=== PATIENT | female | born 1990 | race Caucasian/White ===

== ENCOUNTER 2017-04-02 19:14 | Emergency (ER) | payer OTHER ==
[2017-04-02 19:41] VITALS: TEMP 98.5
[2017-04-02] MEDS ORDERED: KETOROLAC 30 MG/ML 1 ML VIAL IVP STA (20:42)
--- NOTE | 2017-04-02 20:47 | ED ---
Chest Pain HPI - General Chief Complaint: Chest Pain Stated Complaint: neck & arm pain/SOB Time Seen by Provider: 04/02/17 20:22 Source: patient, RN notes reviewed Mode of arrival: ambulatory Limitations: no limitations - History of Present Illness Initial Comments: This is a 26-year-old female who presents to the Emergency Department with complaint of chest pain. There have been intermittent episodes of sharp chest pain localized to the left side with radiation up to the neck since yesterday. Each episode lasts approximately 3 minutes and is associated with nausea. She reports that the left side of her chest and neck is tender to the touch and must remove her shirt from her skin for relief. Pain is positional and reproducible. Denies fever, chills, shortness of breath, abdominal pain, vomiting, dysuria, hematuria, numbess, tingling, headache or vision changes. - Related Data Home Medications Medication Instructions Recorded Confirmed diphenhydrAMINE HCL [Benadryl] 25 mg PO HS 04/02/17 04/02/17 Previous Rx's Medication Instructions Recorded Ibuprofen [Motrin] 800 mg PO TID PRN #30 tab 04/02/17 Allergies Allergy/AdvReac Type Severity Reaction Status Date / Time pregabalin [From Lyrica] Allergy Swelling Verified 04/02/17 20:30 Iodinated Contrast- Oral and AdvReac Nausea & Verified 04/02/17 20:30 IV Dye Vomiting Review of Systems ROS Statement: Those systems with pertinent positive or pertinent negative responses have been documented in the HPI. ROS Other: All systems not noted in ROS Statement are negative. EKG Findings - EKG Comments: EKG Findings:: 04/02/2017 at 20:12:47. Normal sinus rhythm with ventricular rate of 89 bpm. IL interval 162 QRS duration 88 QT/QTC 366/445 Past Medical History Past Medical History: Fibromyalgia Additional Past Medical History / Comment(s): back pain History of Any Multi-Drug Resistant Organisms: None Reported Additional Past Surgical History / Comment(s): D&C Past Psychological History: Anxiety Smoking Status: Never smoker Past Alcohol Use History: Occasional Past Drug Use History: None Reported General Exam - General Exam Comments Initial Comments: General: Awake and alert, well-developed; in no apparent distress. HEENT: Head atraumatic, normocephalic. Pupils are equal, round and reactive to light. Extraocular movements intact. Oropharynx moist without erythema or exudate. Neck: Supple. Normal ROM. No JVD. Trachea midline. No adenopathy. Tenderness of left side of neck up to ear is elicited with palpation. Cardiovascular: Regular rate and rhythm. No murmurs, rubs or gallops. Chest symmetrical. Left sided chest pain is reproducible to palpation. Respiratory: Lungs clear to auscultation bilaterally. No wheezes, rales or rhonchi. Normal respiratory efffort with no use of accessory muscles. Abdomen: Soft, non-tender, non-distended. No rigidity, rebound or guarding. Normal bowel sounds in all 4 quadrants. Skin: [place], warm and dry. Neurological: Alert and oriented x3. CN II-XII grossly intact. Speech is fluent and answers are appropriate. No focal neuro deficits. Psychiatric: Normal mood and affect. No overt signs of depression or anxiety noted. Limitations: no limitations Course Vital Signs 04/02/17 04/02/17 19:37 20:20 Temperature 98.5 F Pulse Rate 90 84 Respiratory 18 17 Rate Blood Pressure 140/95 152/76 O2 Sat by Pulse 98 100 Oximetry Chest Pain MDM - MDM Patient is doing well at this time. Pain on palpation continues to be in the left side of the chest wall and neck. Likely costochondritis or related to her underlying fibromyalgia. Will discharge her home with anti-inflammatories. She is to follow up with her PCP. Disposition Clinical Impression: Chest wall pain Disposition: HOME SELF-CARE Condition: Good Instructions: Chest Wall Pain (ED) Additional Instructions: Please take medications as prescribed. Please follow up with PCP within 2-3 days. Return to ED if symptoms should worsen. Prescriptions: Ibuprofen [Motrin] 800 mg PO TID PRN #30 tab PRN Reason: Pain Referrals: Jesse Sheppard MD [Primary Care Provider] - 1-2 days
--- NOTE | 2017-04-02 21:07 | XR ---
EXAMINATION TYPE: XR chest 2V DATE OF EXAM: 04/02/2017 COMPARISON: NONE HISTORY: Chest pain TECHNIQUE: Frontal and lateral views of the chest are obtained. FINDINGS: Heart and mediastinum are normal. Lungs are clear. Diaphragm is normal. Bony thorax is int act. IMPRESSION: Normal chest
[2017-04-02 21:17] VITALS: BP 155/79; PULSE 95; RESP 18
[2017-04-02] MEDS ORDERED: BUTALB/APAP/CAFF 50-325-40MG TAB PO STA (22:13)
== END 2017-04-02 22:21 | disposition home or self-care (01) ==
LOC: EC 19:14
DX: R07.89 Other chest pain (principal); M54.2 Cervicalgia; R11.0 Nausea; R51 Headache; Z79.899 Other long term (current) drug therapy; Z88.8 Allergy status to other drugs, medicaments and biological substances; Z91.041 Radiographic dye allergy status
CPT/HCPCS: 99285; 96374; 93005; 71020; J1885

== ENCOUNTER 2018-11-18 22:25 | Emergency (ER) | payer OTHER ==
[2018-11-18] MEDS ORDERED: SODIUM CHLORIDE 0.9% 500 ML 500 ML IV STA (23:20)
--- NOTE | 2018-11-18 23:33 | XR ---
EXAM: XR Chest, 2 Views CLINICAL HISTORY: ITS.REASON XR Reason: Chest Pain TECHNIQUE: Frontal and lateral views of the chest. COMPARISON: Chest radiographs 04/02/2017 FINDINGS: Lungs: Unremarkable. No consolidation. Pleural space: Unremarkable. No pneumothorax. Heart: Unremarkable. No cardiomegaly. Mediastinum: Unremarkable. Bones/joints: Unremarkable. IMPRESSION: No acute cardiopulmonary abnormality.
[2018-11-18 23:56] LABS: Basophils % (A) 0 %; Eosinophils # (A) 0.4 k/uL (0-0.7); Eosinophils % (A) 3 %; HCT 41.3 % (34.0-46.0); HGB 13.5 gm/dL (11.4-16.0); Lymphocytes # (A) 4.2 k/uL (1.0-4.8); Lymphocytes % (A) 34 %; MCH 28.7 pg (25.0-35.0); MCHC 32.7 g/dL (31.0-37.0); Mean Platelet Volume 6.6; Monocytes # (A) 0.6 k/uL (0-1.0); Monocytes % (A) 5 %; Neutrophils # (A) 6.8 k/uL (1.3-7.7); Neutrophils % (A) 56 %; Platelet Count 366 k/uL (150-450); RBC 4.69 m/uL (3.80-5.40); WBC 12.2 k/uL (3.8-10.6)
[2018-11-19 00:02] LABS: ALT 15 U/L (9-52); AST 22 U/L (14-36); Albumin 4.4 g/dL (3.5-5.0); Alkaline Phosphatase 106 U/L (38-126); Anion Gap 11 mmol/L; Blood Urea Nitrogen 11 mg/dL (7-17); Calcium 9.9 mg/dL (8.4-10.2); Carbon Dioxide 25 mmol/L (22-30); Chloride 104 mmol/L (98-107); Glucose 94 mg/dL (74-99); Magnesium 1.8 mg/dL (1.6-2.3); Potassium 4.3 mmol/L (3.5-5.1); Sodium 140 mmol/L (137-145); Total Bilirubin 0.7 mg/dL (0.2-1.3); Total Protein 8.2 g/dL (6.3-8.2)
--- NOTE | 2018-11-19 00:22 | ED ---
General Adult HPI - General Chief complaint: Neck Pain/Injury Stated complaint: Chest pain/neck pain Time Seen by Provider: 11/18/18 22:45 Source: patient, RN notes reviewed, old records reviewed Mode of arrival: ambulatory Limitations: no limitations - History of Present Illness Initial comments: 28-year-old female patient past medical history of febrile myalgia, hypertension presents ED for multiple complaints. Patient chief complain is shortness of b reath and chest pain which waxes and wanes throughout the day. Patient reports that this is been ongoing for approximately 3 months. Patient states that she has been seen at multiple hospitals for this provlem. Patient reports that she has anterior wall chest pain which radiates to her left jaw. Patient denies any recent syncope. Patient denies any recent trauma or falls. Patient also has se condary complaint of chronic pain and back and neck which she states from her fibromyalgia and is unchanged from baseline. Patient denies other complaints. Patient states that she is not . Systemic: Pt denies fatigue, fever/chills, rash. Pt denies weakness, night sweats, weight loss. Neuro: Pt denies headache, visual disturbances, syncope or pre-syncope. HEENT: Pt denies ocular discharge or irritation, otalgia, rhinorrhea, pharyngitis or notable lymphadenopathy. Cardiopulmonary: Pt denies heart palpitations, dyspnea on exertion. Abdominal/GI: Pt denies abdominal pain, n/v/d. : Pt denies dysuria, burning w/ urination, frequency/urgency. Denies new onset urinary or bowel incontinence. MSK: Pt denies myalgia, loss of strength or function in extremities. Neuro: Pt denies new onset weakness, paresthesias. - Related Data Home Medications Medication Instructions Recorded Confirmed No Known Home Medications 11/18/18 11/18/18 Allergies Allergy/AdvReac Type Severity Reaction Status Date / Time pregabalin [From Lyrica] Allergy Swelling Verified 11/18/18 23:07 Iodinated Contrast- Oral and AdvReac Nausea & Verified 11/18/18 23:07 IV Dye Vomiting Review of Systems ROS Statement: Those systems with pertinent positive or pertinent negative responses have been documented in the HPI. ROS Other: All systems not noted in ROS Statement are negative. Past Medical History Past Medical History: Fibromyalgia, Hypertension Additional Past Medical History / Comment(s): back pain History of Any Multi-Drug Resistant Organisms: None Reported Additional Past Surgical History / Comment(s): D&C Past Psychological History: Anxiety Smoking Status: Never smoker Past Alcohol Use History: Occasional Past Drug Use History: None Reported General Exam - General Exam Comments Initial Comments: Constitutional: NAD, AOX3, Pt has pleasant affect. HEENT: NC/AT, trachea midline, neck supple, no lymphadenopathy. Posterior pharynx non erythematous, without exudates. External ears appear normal, without discharge. Mucous membranes moist. Eyes PERRLA, EOM intact. There is no scleral icterus. No pallor noted. Cardiopulmonary: RRR, no murmurs, rubs or gallops, no JVD noted. Lungs CTAB in anterior and posterior cavanaugh. No peripheral edema. Abdominal exam: Abdomen soft and non-distended. Abdomen non-tender to palpation in all 4 quadrants. Bowel sounds active in LLQ. No hepatosplenomegaly. No ecchymosis Neuro: CN II-XII intact. No nuchal rigidity. MSK: No cervical spinal tenderness. No posterior calf tenderness bilaterally, homans sign negative bilaterally. Posterior tibialis and radial pulse +2 bilaterally. Sensation intact in upper and lower extremities. Full active ROM in upper and lower extremities, 5/5 stregnth. Limitations: no limitations Course Vital Signs 11/18/18 11/18/18 11/18/18 22:26 23:07 23:20 Temperature 98.1 F Pulse Rate 103 H 82 Respiratory 18 19 Rate Blood Pressure 153/109 122/98 126/96 O2 Sat by Pulse 98 100 99 Oximetry 11/18/18 11/18/18 11/19/18 23:40 23:50 00:10 Temperature Pulse Rate 75 74 68 Respiratory 20 16 16 Rate Blood Pressure 147/100 122/81 107/78 O2 Sat by Pulse 100 99 99 Oximetry 11/19/18 00:20 Temperature Pulse Rate Respiratory Rate Blood Pressure 119/93 O2 Sat by Pulse Oximetry Medical Decision Making - Medical Decision Making 28-year-old female patient past medical history of febrile myalgia, hypertension presents ED for multiple complaints. Patient chief complain is shortness of breath and chest pain which waxes and wanes throughout the day. Patient reports that this is been ongoing for approximately 3 months. Patient states that she has been seen at multiple hospitals for this provlem. Patient reports that she has anterior wall chest pain which radiates to her left jaw. Patient denies any recent syncope. Patient denies any recent trauma or falls. Patient also has secondary complaint of chronic pain and back and neck which she states from her fibromyalgia and is unchanged from baseline. Patient denies other complaints. Patient states that she is not . Patient vital signs stable, afebrile. Physical exam did not display acute pathology. O2 investigations reveal non- impressive CBC, CMP. Cardiorespiratory is within normal limits. D-dimer negative. Troponin negative. EKG not concerning for acute ischemia. HCG negative. Patient chest pain is atypical and chronic in nature. Patient will be discharged with follow-up with primary care provider. Patient will return to ER condition worsens in any way. Case discussed with Dr. Estrada. - Lab Data Result diagrams: 11/18/18 23:04 11/18/18 23:04 Lab Results 11/18/18 11/18/18 11/18/18 Range/Units 23:04 23:04 23:04 WBC 12.2 H (3.8-10.6) k/uL RBC 4.69 (3.80-5.40) m/uL Hgb 13.5 (11.4-16.0) gm/dL Hct 41.3 (34.0-46.0) % MCV 88.0 (80.0-100.0) fL MCH 28.7 (25.0-35.0) pg MCHC 32.7 (31.0-37.0) g/dL RDW 13.0 (11.5-15.5) % Plt Count 366 (150-450) k/uL Neutrophils % 56 % Lymphocytes % 34 % Monocytes % 5 % Eosinophils % 3 % Basophils % 0 % Neutrophils # 6.8 (1.3-7.7) k/uL Lymphocytes # 4.2 (1.0-4.8) k/uL Monocytes # 0.6 (0-1.0) k/uL Eosinophils # 0.4 (0-0.7) k/uL Basophils # 0.0 (0-0.2) k/uL PT 9.6 (9.0-12.0) sec INR 0.9 (<1.2) APTT 29.2 (22.0-30.0) sec D-Dimer 0.23 (<0.60) mg/L FEU Sodium 140 (137-145) mmol/L Potassium 4.3 (3.5-5.1) mmol/L Chloride 104 (98-107) mmol/L Carbon Dioxide 25 (22-30) mmol/L Anion Gap 11 mmol/L BUN 11 (7-17) mg/dL Creatinine 0.53 (0.52-1.04) mg/dL Est GFR (CKD-EPI)AfAm >90 (>60 ml/min/1.73 sqM) Est GFR (CKD-EPI)NonAf >90 (>60 ml/min/1.73 sqM) Glucose 94 (74-99) mg/dL Calcium 9.9 (8.4-10.2) mg/dL Magnesium 1.8 (1.6-2.3) mg/dL Total Bilirubin 0.7 (0.2-1.3) mg/dL AST 22 (14-36) U/L ALT 15 (9-52) U/L Alkaline Phosphatase 106 (38-126) U/L Troponin I (0.000-0.034) ng/mL Total Protein 8.2 (6.3-8.2) g/dL Albumin 4.4 (3.5-5.0) g/dL Urine HCG, Qual (Not Detectd) 11/18/18 11/19/18 Range/Units 23:04 00:33 WBC (3.8-10.6) k/uL RBC (3.80-5.40) m/uL Hgb (11.4-16.0) gm/dL Hct (34.0-46.0) % MCV (80.0-100.0) fL MCH (25.0-35.0) pg MCHC (31.0-37.0) g/dL RDW (11.5-15.5) % Plt Count (150-450) k/uL Neutrophils % % Lymphocytes % % Monocytes % % Eosinophils % % Basophils % % Neutrophils # (1.3-7.7) k/uL Lymphocytes # (1.0-4.8) k/uL Monocytes # (0-1.0) k/uL Eosinophils # (0-0.7) k/uL Basophils # (0-0.2) k/uL PT (9.0-12.0) sec INR (<1.2) APTT (22.0-30.0) sec D-Dimer (<0.60) mg/L FEU Sodium (137-145) mmol/L Potassium (3.5-5.1) mmol/L Chloride (98-107) mmol/L Carbon Dioxide (22-30) mmol/L Anion Gap mmol/L BUN (7-17) mg/dL Creatinine (0.52-1.04) mg/dL Est GFR (CKD-EPI)AfAm (>60 ml/min/1.73 sqM) Est GFR (CKD-EPI)NonAf (>60 ml/min/1.73 sqM) Glucose (74-99) mg/dL Calcium (8.4-10.2) mg/dL Magnesium (1.6-2.3) mg/dL Total Bilirubin (0.2-1.3) mg/dL AST (14-36) U/L ALT (9-52) U/L Alkaline Phosphatase (38-126) U/L Troponin I <0.012 (0.000-0.034) ng/mL Total Protein (6.3-8.2) g/dL Albumin (3.5-5.0) g/dL Urine HCG, Qual Not Detected (Not Detectd) - EKG Data -: EKG Interpreted by Me (and dr estrada) EKG Comments: Ventricular rate 80, DE interval 164, QRS 92, QT/QTC 360/4:15. Normal sinus rhythm, no concern for acute ischemia. Disposition Clinical Impression: Chest pain, atypical Disposition: HOME SELF-CARE Condition: Stable Instructions (If sedation given, give patient instructions): Noncardiac Chest Pain (ED) Additional Instructions: Patient to adhere to previously discussed treatment plan and will take medication(s) as directed. Patient to follow up with PCP in 1-2 days. Patient to return to ED if symptoms do not improve. Follow-up with primary care provider in 1-2 days. Return to ED if condition worsens in any way. Is patient prescribed a controlled substance at d/c from ED?: No Referrals: Nonstaff,Physician [Primary Care Provider] - 1-2 days
[2018-11-19 00:43] LABS: D-Dimer 0.23 mg/L FEU (<0.60); INR 0.9 (<1.2); Partial Thromboplastin Time 29.2 sec (22.0-30.0); Prothrombin Time 9.6 sec (9.0-12.0)
[2018-11-19] MEDS ORDERED: ONDANSETRON 4 MG/2 ML VIAL IVP STA (00:48)
[2018-11-19 01:19] VITALS: RESP 16
[2018-11-19 01:23] VITALS: BP 113/75; PULSE 82; TEMP 98
== END 2018-11-19 01:40 | disposition home or self-care (01) ==
LOC: EC 22:25
DX: R07.89 Other chest pain (principal); M54.2 Cervicalgia; R06.02 Shortness of breath; M79.7 Fibromyalgia; I10 Essential (primary) hypertension; Z88.8 Allergy status to other drugs, medicaments and biological substances; Z91.041 Radiographic dye allergy status
CPT/HCPCS: 99285; 96374; 36415; 93005; 85379; 80053; 83735; 84484; 85025; 85610; 85730; 81025; 71046; J2405

== ENCOUNTER 2019-02-05 14:08 | Emergency (ER) | payer OTHER ==
[2019-02-05 14:17] VITALS: TEMP 97.9
[2019-02-05] MEDS ORDERED: SODIUM CHLORIDE 0.9% 1,000 ML IV STA (14:34)
[2019-02-05] MEDS ORDERED: ONDANSETRON 4 MG/2 ML VIAL IVP STA (14:34)
[2019-02-05] MEDS ORDERED: MORPHINE SULFATE 4 MG/ML SYRINGE IV STA (14:34)
--- NOTE | 2019-02-05 14:43 | ED ---
Abdominal Pain HPI - General Chief Complaint: Abdominal Pain Stated Complaint: Lt side pain Time Seen by Provider: 02/05/19 14:19 Source: patient Mode of arrival: ambulatory Limitations: no limitations - History of Present Illness Initial Comments: Patient is a 28-year-old , female presenting to emergency Department with a chief complaint of stomach pain. Patient reports the pain is located in the left upper quadrant and is started on January 19 when she developed nausea and 1 episode of vomiting. Patient reports the pain has gradually increased since then and she continues to have nausea but no vomiting. Patient reports the pain is constant and sharp and dull at the same time. Patient reports clear vaginal discharge without a followed her. Patient also reports increased frequency since the onset of pain and no dysuria. Patient reports chronic amenorrhea unless she is on oral contraceptives. Patient is currently not on control and states that she has vaginal bleeding the last week. Patient denies any changes in bowel. Patient denies fever but reports chills. - Related Data Previous Rx's Medication Instructions Recorded Ondansetron Odt [Zofran Odt] 4 mg PO Q8HR PRN #10 tab 02/05/19 Allergies Allergy/AdvReac Type Severity Reaction Status Date / Time pregabalin [From Lyrica] Allergy Swelling Verified 11/18/18 23:07 Iodinated Contrast- Oral and AdvReac Nausea & Verified 11/18/18 23:07 IV Dye Vomiting Review of Systems ROS Statement: Those systems with pertinent positive or pertinent negative responses have been documented in the HPI. ROS Other: All systems not noted in ROS Statement are negative. Past Medical History Past Medical History: Fibromyalgia, Hypertension Additional Past Medical History / Comment(s): back pain History of Any Multi-Drug Resistant Organisms: None Reported Past Surgical History: Ear Surgery Additional Past Surgical History / Comment(s): D&C Past Psychological History: Anxiety Smoking Status: Never smoker Past Alcohol Use History: Occasional Past Drug Use History: None Reported General Exam Limitations: no limitations General appearance: alert, in no apparent distress Head exam: Present: atraumatic, normocephalic, normal inspection Eye exam: Present: normal appearance, PERRL, EOMI Pupils: Present: normal accommodation ENT exam: Present: normal exam, normal oropharynx, mucous membranes moist, TM's normal bilaterally, normal external ear exam Neck exam: Present: normal inspection, full ROM Respiratory exam: Present: normal lung sounds bilaterally Cardiovascular Exam: Present: regular rate, normal rhythm, normal heart sounds GI/Abdominal exam: Present: soft, tenderness (Left upper quadrant), normal bowel sounds, other (Negative Jenkins sign, negative McBurney point tenderness, negative obturator sign, negative rebound tenderness, negative psoas, negative Rovsing). Absent: guarding, rebound Extremities exam: Present: normal inspection, full ROM Back exam: Present: normal inspection, full ROM, CVA tenderness (L) Neurological exam: Present: alert, oriented X3 Psychiatric exam: Present: normal affect, normal mood Skin exam: Present: warm, intact, normal color Course Vital Signs 02/05/19 02/05/19 14:11 17:02 Temperature 97.9 F Pulse Rate 84 70 Respiratory 18 16 Rate Blood Pressure 100/63 130/87 O2 Sat by Pulse 98 Oximetry Medical Decision Making - Lab Data Result diagrams: 02/05/19 15:10 02/05/19 15:10 Lab Results 02/05/19 02/05/19 02/05/19 Range/Units 15:10 15:10 15:10 WBC 12.8 H (3.8-10.6) k/uL RBC 4.23 (3.80-5.40) m/uL Hgb 12.2 (11.4-16.0) gm/dL Hct 37.9 (34.0-46.0) % MCV 89.5 (80.0-100.0) fL MCH 28.9 (25.0-35.0) pg MCHC 32.3 (31.0-37.0) g/dL RDW 13.2 (11.5-15.5) % Plt Count 332 (150-450) k/uL Neutrophils % 68 % Lymphocytes % 25 % Monocytes % 4 % Eosinophils % 2 % Basophils % 0 % Neutrophils # 8.7 H (1.3-7.7) k/uL Lymphocytes # 3.2 (1.0-4.8) k/uL Monocytes # 0.5 (0-1.0) k/uL Eosinophils # 0.3 (0-0.7) k/uL Basophils # 0.0 (0-0.2) k/uL Sodium 139 (137-145) mmol/L Potassium 3.9 (3.5-5.1) mmol/L Chloride 104 (98-107) mmol/L Carbon Dioxide 26 (22-30) mmol/L Anion Gap 9 mmol/L BUN 9 (7-17) mg/dL Creatinine 0.50 L (0.52-1.04) mg/dL Est GFR (CKD-EPI)AfAm >90 (>60 ml/min/1.73 sqM) Est GFR (CKD-EPI)NonAf >90 (>60 ml/min/1.73 sqM) Glucose 86 (74-99) mg/dL Calcium 9.3 (8.4-10.2) mg/dL Total Bilirubin 0.6 (0.2-1.3) mg/dL AST 17 (14-36) U/L ALT 19 (9-52) U/L Alkaline Phosphatase 94 (38-126) U/L Total Protein 7.5 (6.3-8.2) g/dL Albumin 4.0 (3.5-5.0) g/dL Amylase 55 (30-110) U/L Lipase 51 (23-300) U/L Urine Color Urine Appearance (Clear) Urine pH (5.0-8.0) Ur Specific [place] (1.001-1.035) Urine Protein (Negative) Urine Glucose (UA) (Negative) Urine Ketones (Negative) Urine Blood (Negative) Urine Nitrite (Negative) Urine Bilirubin (Negative) Urine Urobilinogen (<2.0) mg/dL Ur Leukocyte Esterase (Negative) Urine RBC (0-5) /hpf Urine WBC (0-5) /hpf Ur Squamous Epith Cells (0-4) /hpf Urine Bacteria (None) /hpf Urine Mucus (None) /hpf Urine HCG, Qual Not Detected (Not Detectd) 02/05/19 Range/Units 15:10 WBC (3.8-10.6) k/uL RBC (3.80-5.40) m/uL Hgb (11.4-16.0) gm/dL Hct (34.0-46.0) % MCV (80.0-100.0) fL MCH (25.0-35.0) pg MCHC (31.0-37.0) g/dL RDW (11.5-15.5) % Plt Count (150-450) k/uL Neutrophils % % Lymphocytes % % Monocytes % % Eosinophils % % Basophils % % Neutrophils # (1.3-7.7) k/uL Lymphocytes # (1.0-4.8) k/uL Monocytes # (0-1.0) k/uL Eosinophils # (0-0.7) k/uL Basophils # (0-0.2) k/uL Sodium (137-145) mmol/L Potassium (3.5-5.1) mmol/L Chloride (98-107) mmol/L Carbon Dioxide (22-30) mmol/L Anion Gap mmol/L BUN (7-17) mg/dL Creatinine (0.52-1.04) mg/dL Est GFR (CKD-EPI)AfAm (>60 ml/min/1.73 sqM) Est GFR (CKD-EPI)NonAf (>60 ml/min/1.73 sqM) Glucose (74-99) mg/dL Calcium (8.4-10.2) mg/dL Total Bilirubin (0.2-1.3) mg/dL AST (14-36) U/L ALT (9-52) U/L Alkaline Phosphatase (38-126) U/L Total Protein (6.3-8.2) g/dL Albumin (3.5-5.0) g/dL Amylase (30-110) U/L Lipase (23-300) U/L Urine Color Yellow Urine Appearance Cloudy H (Clear) Urine pH 5.5 (5.0-8.0) Ur Specific [place] 1.010 (1.001-1.035) Urine Protein Negative (Negative) Urine Glucose (UA) Negative (Negative) Urine Ketones Negative (Negative) Urine Blood Moderate H (Negative) Urine Nitrite Negative (Negative) Urine Bilirubin Negative (Negative) Urine Urobilinogen <2.0 (<2.0) mg/dL Ur Leukocyte Esterase Small H (Negative) Urine RBC 46 H (0-5) /hpf Urine WBC <1 (0-5) /hpf Ur Squamous Epith Cells 1 (0-4) /hpf Urine Bacteria Rare H (None) /hpf Urine Mucus Rare H (None) /hpf Urine HCG, Qual (Not Detectd) Disposition Clinical Impression: Abdominal pain Disposition: HOME SELF-CARE Condition: Stable Instructions (If sedation given, give patient instructions): Abdominal Pain (ED) Additional Instructions: Please take prescribed medication as directed. Please follow up with a GI specialist. Please return to emergency department if symptoms worsen. Prescriptions: Ondansetron Odt [Zofran Odt] 4 mg PO Q8HR PRN #10 tab PRN Reason: Nausea Is patient prescribed a controlled substance at d/c from ED?: No Referrals: None,Stated [Primary Care Provider] - 1-2 days Megan Moss MD [STAFF PHYSICIAN] - 1-2 days Time of Disposition: 18:32
[2019-02-05 15:28] LABS: Basophils % (A) 0 %; Eosinophils # (A) 0.3 k/uL (0-0.7); Eosinophils % (A) 2 %; HCT 37.9 % (34.0-46.0); HGB 12.2 gm/dL (11.4-16.0); Lymphocytes # (A) 3.2 k/uL (1.0-4.8); Lymphocytes % (A) 25 %; MCH 28.9 pg (25.0-35.0); MCHC 32.3 g/dL (31.0-37.0); MCV 89.5 fL (80.0-100.0); Mean Platelet Volume 6.6; Monocytes # (A) 0.5 k/uL (0-1.0); Monocytes % (A) 4 %; Neutrophils # (A) 8.7 k/uL (1.3-7.7); Neutrophils % (A) 68 %; Platelet Count 332 k/uL (150-450); RBC 4.23 m/uL (3.80-5.40); RDW 13.2 % (11.5-15.5); WBC 12.8 k/uL (3.8-10.6)
[2019-02-05 15:36] LABS: Appearance,Urine Cloudy (Clear); Bacteria,Urine Rare /hpf; Bilirubin,Urine Negative (Negative); Blood,Urine Moderate (Negative); Color,Urine Yellow; Glucose,Urine (UA) Negative (Negative); Ketones,Urine Negative (Negative); Leukocyte Esterase,Urine Small (Negative); Mucus,Urine Rare /hpf; Nitrite,Urine Negative (Negative); PH, Urine 5.5 (5.0-8.0); Protein,Urine Negative (Negative); RBC,Urine 46 /hpf (0-5); Squamous Epithelial Cell,Urine 1 /hpf (0-4); Urobilinogen,Urine <2.0 mg/dL (<2.0); WBC,Urine <1 /hpf (0-5)
[2019-02-05 15:37] LABS: ALT 19 U/L (9-52); AST 17 U/L (14-36); African American GFR (CKD) >90 (>60 ml/min/1.73 sqM); Alkaline Phosphatase 94 U/L (38-126); Amylase 55 U/L (30-110); Anion Gap 9 mmol/L; Blood Urea Nitrogen 9 mg/dL (7-17); Calcium 9.3 mg/dL (8.4-10.2); Carbon Dioxide 26 mmol/L (22-30); Chloride 104 mmol/L (98-107); Glucose 86 mg/dL (74-99); Potassium 3.9 mmol/L (3.5-5.1); Sodium 139 mmol/L (137-145); Total Bilirubin 0.6 mg/dL (0.2-1.3); Total Protein 7.5 g/dL (6.3-8.2)
[2019-02-05] MEDS ORDERED: MORPHINE SULFATE 4 MG/ML SYRINGE IVP STA (16:18)
--- NOTE | 2019-02-05 16:39 | CT ---
EXAMINATION TYPE: CT abdomen pelvis wo con DATE OF EXAM: 02/05/2019 COMPARISON: None HISTORY: Abdominal pain CT DLP: 1676.4 mGycm Automated exposure control for dose reduction was used. TECHNIQUE: Helical acquisition of images from the lung bases through the pelvis. FINDINGS: Lack of intravenous contrast could compromise sensitivity. Small umbilical hernia contains fat. LUNG BASES: No significant abnormality is appreciated. AORTA: No significant abnormality is appreciated. LIVER/GB: Liver is enlarged. It shows low attenuation. PANCREAS: No significant abnormality is seen. SPLEEN: No significant abnormality is seen. ADRENALS: No significant abnormality is seen. KIDNEYS: No significant abnormality is seen. REPRODUCTIVE ORGANS: No significant abnormality is seen. URINARY BLADDER: No significant abnormality is seen. BOWEL: Fluid-filled loops of small bowel are noted. There is possible small bowel wall thickening. T he appendix is normal FREE AIR: No Free Air is visible. ASCITES: None visible. PELVIC ADENOPATHY: None visualized. RETROPERITONEAL ADENOPATHY: No Retroperitoneal Adenopathy visible. OSSEOUS STRUCTURES: degenerative disk changes L5-S1. IMPRESSION: HEPATIC STEATOSIS, HEPATOMEGALY. NONCONTRAST EXAM. CORRELATE FOR POSSIBLE ENTERITIS.
[2019-02-05] MEDS ORDERED: HYDROmorphone 1 MG/ML 1 ML SYRINGE IVP STA (16:53)
[2019-02-05 17:03] VITALS: RESP 16
--- NOTE | 2019-02-05 17:57 | XR ---
EXAMINATION TYPE: XR chest 2V DATE OF EXAM: 02/05/2019 COMPARISON: 11/18/2018 HISTORY: Left upper quadrant pain and cough TECHNIQUE: Frontal and lateral views of the chest are obtained. FINDINGS: There is no focal air space opacity, pleural effusion, or pneumothorax seen. The cardiac silhouette size is within normal limits. The osseous structures are intact. Mild multilevel degener ative changes of the spine. IMPRESSION: No acute cardiopulmonary process.
[2019-02-05] MEDS ORDERED: ONDANSETRON 4 MG ODT STARTER PACK 2 TAB BTL PO STA (18:03)
[2019-02-05] MEDS ORDERED: ACET/COD 300 MG/30 MG STARTER PACK 6 TAB BTL PO STA (18:03)
[2019-02-05 19:22] VITALS: BP 116/79; PULSE 81
[2019-02-07 14:35] LABS: N. gonorrhoeae,PCR Negative (Neg,Equiv); Neisseria Source Cervix
[2019-02-07 15:14] LABS: C. trachomatis,PCR Negative (Neg,Equiv); Chlamydia trachomatis Source Cervix
== END 2019-02-05 19:20 | disposition home or self-care (01) ==
LOC: EC 14:08
DX: R10.12 Left upper quadrant pain (principal); R11.2 Nausea with vomiting, unspecified; R35.0 Frequency of micturition; N89.8 Other specified noninflammatory disorders of vagina; N91.2 Amenorrhea, unspecified; R68.83 Chills (without fever); Z88.8 Allergy status to other drugs, medicaments and biological substances; Z91.041 Radiographic dye allergy status
CPT/HCPCS: 36415; 80053; 82150; 83690; 85025; 81001; 81025; 87491; 87591; 87070; 87205; 71046; 74176; 99284; 96374; 96375 ×2; 96376; 96361; J2270; J2405; J1170; S0119

== ENCOUNTER 2019-07-19 10:50 | Emergency (ER) | payer SELFPAY ==
[2019-07-19 10:57] VITALS: BP 114/75; PULSE 94; RESP 18; TEMP 98.3
--- NOTE | 2019-07-19 11:10 | ED ---
General Adult HPI - General Chief complaint: ENT Stated complaint: hard time breathing Time Seen by Provider: 07/19/19 10:58 Source: patient, RN notes reviewed Mode of arrival: ambulatory Limitations: no limitations - History of Present Illness Initial comments: 29-year-old female presents to the emergency department for chief: A sore throat. Patient states she had a sore throat starting 3 days ago. States that she looked in the back of her throat today and noticed she had white spots on her tonsils. Patient states she thinks she has strep. She denies any fevers. Does admit to tender anterior cervical lymphadenopathy. States that she has had lymphadenopathy for several months and has been evaluated by both primary care and ENT, they state this is normal. Patient denies any difficulty swallowing. She is in no respiratory distress. Denies any neck pain or stiffness.Patient has no other complaints at this time including shortness of breath, chest pain, abdominal pain, nausea or vomiting, headache, or visual changes. - Related Data Previous Rx's Medication Instructions Recorded Ondansetron Odt [Zofran Odt] 4 mg PO Q8HR PRN #10 tab 02/05/19 Amoxicillin 500 mg PO Q12HR #20 cap 07/19/19 Allergies Allergy/AdvReac Type Severity Reaction Status Date / Time pregabalin [From Lyrica] Allergy Swelling Verified 07/19/19 10:53 Iodinated Contrast Media AdvReac Nausea & Verified 07/19/19 10:53 [Iodinated Contrast- Oral Vomiting and IV Dye] Review of Systems ROS Statement: Those systems with pertinent positive or pertinent negative responses have been documented in the HPI. ROS Other: All systems not noted in ROS Statement are negative. Past Medical History Past Medical History: Fibromyalgia, Hypertension Additional Past Medical History / Comment(s): back pain History of Any Multi-Drug Resistant Organisms: None Reported Past Surgical History: Ear Surgery Additional Past Surgical History / Comment(s): D&C Past Psychological History: Anxiety Smoking Status: Never smoker Past Alcohol Use History: None Reported, Occasional Past Drug Use History: None Reported General Exam Limitations: no limitations General appearance: alert, in no apparent distress Head exam: Present: atraumatic, normocephalic, normal inspection Eye exam: Present: normal appearance, PERRL, EOMI. Absent: scleral icterus, conjunctival injection, periorbital swelling ENT exam: Present: normal exam, mucous membranes moist, TM's normal bilaterally, normal external ear exam. Absent: normal oropharynx (Mild tonsillar exudates noted bilaterally. Uvula is midline, tonsillar pillars symmetric, there is no evidence for peritonsillar abscess.) Neck exam: Present: normal inspection, full ROM. Absent: tenderness, meningismus, lymphadenopathy Respiratory exam: Present: normal lung sounds bilaterally. Absent: respiratory distress, wheezes, rales, rhonchi, stridor Cardiovascular Exam: Present: regular rate, normal rhythm, normal heart sounds. Absent: systolic murmur, diastolic murmur, rubs, gallop, clicks Course Vital Signs 07/19/19 10:54 Temperature 98.3 F Pulse Rate 94 Respiratory 18 Rate Blood Pressure 114/75 O2 Sat by Pulse 98 Oximetry Medical Decision Making - Medical Decision Making I discussed empiric treatment versus testing for strep . At this point patient would prefer to be treated with amoxicillin regardless. I did discuss that if patient has mono she will get a rash from the amoxicillin so to make sure she follows up with primary care. Discussed returning here if she has any worsening symptoms. Disposition Clinical Impression: Pharyngitis Disposition: HOME SELF-CARE Condition: Good Instructions (If sedation given, give patient instructions): Strep Throat (ED) Additional Instructions: Please take antibiotic as directed. Do saltwater gargles and take Motrin and Tylenol for pain. Follow-up with primary care in 1-2 days. If you have any worsening symptoms return to the emergency department. Prescriptions: Amoxicillin 500 mg PO Q12HR #20 cap Is patient prescribed a controlled substance at d/c from ED?: No Referrals: Jesse Sheppard MD [Primary Care Provider] - 1-2 days Time of Disposition: 11:09
== END 2019-07-19 11:21 | disposition home or self-care (01) ==
LOC: EC 10:50
DX: J02.9 Acute pharyngitis, unspecified (principal); I10 Essential (primary) hypertension; Z88.8 Allergy status to other drugs, medicaments and biological substances; Z91.048 Other nonmedicinal substance allergy status
CPT/HCPCS: 99282

== ENCOUNTER → 2020-08-07 | Outpatient (CLI) | payer OTHER ==
--- NOTE | 2020-08-08 09:48 | XR ---
EXAMINATION TYPE: XR lumbar spine 2 or 3V DATE OF EXAM: 08/07/2020 CLINICAL HISTORY: pain TECHNIQUE: Three views of the lumbar spine are submitted. COMPARISON: None. FINDINGS: There are 5 lumbar type vertebral bodies identified. The lumbar spine shows satisfactory alignment w ithout evidence of acute fracture or dislocation. Vertebral body heights are within normal limits. Moderate degenerative narrowing L5-S1. The overlying soft tissue appears unremarkable. IMPRESSION: No acute fracture or dislocation is seen in the lumbar spine. ICD 10 NO FRACTURE, INITIAL EVALUATION
--- NOTE | 2020-08-08 10:50 | XR ---
EXAMINATION TYPE: XR wrist complete BILATERAL DATE OF EXAM: 08/07/2020 CLINICAL HISTORY: pain TECHNIQUE: Frontal, lateral and oblique images of the right wrist are obtained. COMPARISON: None. FINDINGS: There is no acute fracture/dislocation evident. The joint spaces appear within normal limits. The o verlying soft tissue appears unremarkable. IMPRESSION: There is no acute fracture or dislocation seen. ICD 10 NO FRACTURE, INITIAL EVALUATION EXAMINATION TYPE: XR wrist complete BILATERAL DATE OF EXAM: 08/07/2020 CLINICAL HISTORY: pain TECHNIQUE: Frontal, lateral and oblique images of the left wrist are obtained. COMPARISON: None. FINDINGS: There is no acute fracture/dislocation evident. The joint spaces appear within normal ma its. The overlying soft tissue appears unremarkable.
--- NOTE | 2020-08-08 10:57 | XR ---
EXAMINATION TYPE: XR thoracic spine 2V DATE OF EXAM: 08/07/2020 CLINICAL HISTORY: pain TECHNIQUE: Frontal, lateral, and swimmer's view of thoracic spine are obtained. COMPARISON: None. FINDINGS: Thoracic spine show satisfactory alignment without evidence of acute fracture or dislocatio n. Vertebral body heights are preserved. Bvat-rb-lpmnhpam multilevel degenerative disc space narrowi ng and spondylosis. Visualized ribs are unremarkable. IMPRESSION: No acute fracture or dislocation is seen in the thoracic spine. ICD 10 NO FRACTURE, INIT IAL EVALUATION
--- NOTE | 2020-08-08 11:00 | XR ---
EXAMINATION TYPE: XR abdomen 1V DATE OF EXAM: 08/07/2020 4:27 PM CLINICAL HISTORY: Pain TECHNIQUE: Single supine KUB image of the abdomen is obtained. COMPARISON: None. FINDINGS: Scattered gas is seen in non-distended small bowel loops. Gas and fecal material is seen in non-distended colon. There is no visceromegaly, pneumoperitoneum, or abnormal calcification apprecia evi. The lung bases are clear and the osseous structures are intact. IMPRESSION: Overall nonobstructive bowel gas pattern.
== END | disposition home or self-care (01) ==
LOC: RADXRMAIN 15:52
PROVIDERS: ATTEND Internal Medicine
DX: R22.32 Localized swelling, mass and lump, left upper limb (principal); R22.31 Localized swelling, mass and lump, right upper limb; G89.29 Other chronic pain; M54.6 Pain in thoracic spine; M54.5 Low back pain; K21.9 Gastro-esophageal reflux disease without esophagitis
CPT/HCPCS: 72070; 72100; 74018

== ENCOUNTER 2021-01-29 16:45 | Emergency (ER) | payer OTHER ==
[2021-01-29 16:51] VITALS: RESP 16; TEMP 98.1
[2021-01-29] MEDS ORDERED: IBUPROFEN 600 MG TAB PO STA (17:40)
--- NOTE | 2021-01-29 17:54 | XR ---
EXAMINATION TYPE: XR foot complete LT DATE OF EXAM: 01/29/2021 COMPARISON: NONE HISTORY: Injury. Pain TECHNIQUE: 3 views FINDINGS: Metatarsals are intact. I see no fracture nor dislocation. Joint spaces are normal. There a re no erosions. IMPRESSION: Negative left foot exam. No fracture.
--- NOTE | 2021-01-29 18:38 | ED ---
Lower Extremity Injury HPI - General Chief Complaint: Extremity Injury, Lower Stated Complaint: [facility]-foot injury Time Seen by Provider: 01/29/21 17:23 Source: patient Mode of arrival: ambulatory Limitations: no limitations - History of Present Illness Initial Comments: Patient is a 30-year-old female presenting to emergency Department with complaints of an injury to her left foot while at work today. She states she was moving a box of car parts when the bottom fell out in the parts landed on top of her left foot. She states this happened about 1 hour prior to arrival. She is having a lot of pain over her first and second metatarsals. She denies any previous injuries to her left foot. She denies any further complaints today. She did not take any Tylenol or Motrin prior to arrival. - Related Data Previous Rx's Medication Instructions Recorded Ondansetron Odt [Zofran Odt] 4 mg PO Q8HR PRN #10 tab 02/05/19 Amoxicillin 500 mg PO Q12HR #20 cap 07/19/19 Ibuprofen [Motrin] 600 mg PO Q8HR PRN #20 tab 01/29/21 Allergies Allergy/AdvReac Type Severity Reaction Status Date / Time pregabalin [From Lyrica] Allergy Swelling Verified 01/29/21 16:51 Iodinated Contrast Media AdvReac Nausea & Verified 01/29/21 16:51 [Iodinated Contrast- Oral Vomiting and IV Dye] Review of Systems ROS Statement: Those systems with pertinent positive or pertinent negative responses have been documented in the HPI. ROS Other: All systems not noted in ROS Statement are negative. Past Medical History Past Medical History: Fibromyalgia, Hypertension Additional Past Medical History / Comment(s): back pain History of Any Multi-Drug Resistant Organisms: None Reported Past Surgical History: Ear Surgery Additional Past Surgical History / Comment(s): D&C Past Psychological History: Anxiety Smoking Status: Never smoker Past Alcohol Use History: None Reported, Occasional Past Drug Use History: None Reported General Exam - General Exam Comments Initial Comments: GENERAL: Patient is well-developed and well-nourished. Patient is nontoxic and in no ac lynda distress. HEAD: Atraumatic, normocephalic. LUNGS: Unlabored respirations. Breath sounds clear to auscultation bilaterally and equal. No wheezes rales or rhonchi. HEART: Regular rate and rhythm without murmurs, rubs or gallops. ABDOMEN: Soft, nontender, normoactive bowel sounds. MUSCULOSKELETAL: Patient has pain to palpation over the left first metatarsal, she has some very mild swelling present, no deformity seen, neurovascular intact. She is able to wiggle her toes. No pain of the left ankle. No clubbing or cyanosis. NEUROLOGICAL: Patient is alert and oriented x 3. PSYCH: Normal mood, normal affect. SKIN: Warm, Dry, normal turgor, no rashes or lesions noted. Limitations: no limitations Course Vital Signs 01/29/21 01/29/21 16:48 18:51 Temperature 98.1 F 98.1 F Pulse Rate 88 82 Respiratory 16 16 Rate Blood Pressure 138/94 142/86 O2 Sat by Pulse 99 99 Oximetry Procedures - Orthopedic Splinting/Casting Injury #1 Side: left Lower Extremity Injury Location: foot Lower Extremity Immobilizer: post-op shoe Medical Decision Making - Medical Decision Making She is a 30-year-old female here with an injury to her left foot that happened at work about one hour prior to arrival. Large car part fell on the top of her left foot. X-rays today show no acute fractures dislocations. I discussed with patient this is a foot contusion. Recommended ice to the area, Tylenol or ibuprofen for discomfort. Patient has tennis shoe with her and it is very painful to put on, did give her a postop shoe to go home with. Recommended ibuprofen for discomfort, I will give her prescription. Patient is stable for discharge. Patient is in agreement with this plan of care. Return parameters were discussed with the patient and they verbalized understanding. Case discussed with Dr. neal. Disposition Clinical Impression: Contusion of left foot Disposition: HOME SELF-CARE Condition: Stable Instructions (If sedation given, give patient instructions): Foot Contusion (ED) Additional Instructions: Please return to the Emergency Department if symptoms worsen or any other concerns. Recommend ibuprofen and/or Tylenol for discomfort. Apply ice to the area. Follow-up with your PCP if symptoms persist without improvement after a few weeks. Prescriptions: Ibuprofen [Motrin] 600 mg PO Q8HR PRN #20 tab PRN Reason: Pain Is patient prescribed a controlled substance at d/c from ED?: No Referrals: Jesse Sheppard MD [Primary Care Provider] - 1-2 days Time of Disposition: 18:38
[2021-01-29 18:52] VITALS: BP 142/86; PULSE 82
== END 2021-01-29 18:52 | disposition home or self-care (01) ==
LOC: EC 16:45
DX: S90.32XA Contusion of left foot, initial encounter (principal); I10 Essential (primary) hypertension; Z88.8 Allergy status to other drugs, medicaments and biological substances; Z91.041 Radiographic dye allergy status; W20.8XXA Other cause of strike by thrown, projected or falling object, initial encounter; Y93.89 Activity, other specified; Y99.0 Civilian activity done for income or pay
CPT/HCPCS: 99283

== ENCOUNTER 2021-06-19 11:45 | Emergency (ER) | payer OTHER ==
[2021-06-19 12:30] VITALS: TEMP 98.1
--- NOTE | 2021-06-19 13:32 | XR ---
EXAMINATION TYPE: XR chest 1V portable DATE OF EXAM: 06/19/2021 Comparison: 02/05/2019 Clinical History: 31-year-old female cough Findings: Heart upper limits of normal in size. Of vasculature within normal limits. Some hazy peripheral opaci ties likely related to overlying soft tissue. No alley consolidation or pleural effusion seen. Impression: Hazy peripheral opacities likely relating to overlying soft tissue rather than mild interstitial infi ltrates. If concern for early COVID pneumonia, consider follow-up.
--- NOTE | 2021-06-19 13:39 | ED ---
General Adult HPI - General Chief complaint: Shortness of Breath Stated complaint: Covid+, SOB Time Seen by Provider: 06/19/21 12:32 Source: patient, RN notes reviewed Mode of arrival: ambulatory Limitations: no limitations - History of Present Illness Initial comments: Patient's a 31-year-old female presented to the emergency room today with a chief complaint of feeling short of breath. Patient does admit that her symptoms started approximately 2 weeks ago. She states that she did test positive on June 07 for COVID-19. Patient states that she's been feeling more short of breath last few days. Does not have a pulse ox at home. States still feeling somewhat rundown and fatigued. She denies any other complaints or symptoms at this time. - Related Data Home Medications Medication Instructions Recorded Confirmed No Known Home Medications 06/19/21 06/19/21 Allergies Allergy/AdvReac Type Severity Reaction Status Date / Time pregabalin [From Lyrica] Allergy Swelling Verified 06/19/21 13:02 Iodinated Contrast Media AdvReac Nausea & Verified 06/19/21 13:02 [Iodinated Contrast- Oral Vomiting and IV Dye] Review of Systems ROS Statement: Those systems with pertinent positive or pertinent negative responses have been documented in the HPI. ROS Other: All systems not noted in ROS Statement are negative. Past Medical History Past Medical History: Fibromyalgia, Hypertension Additional Past Medical History / Comment(s): back pain History of Any Multi-Drug Resistant Organisms: None Reported Past Surgical History: Ear Surgery Additional Past Surgical History / Comment(s): D&C Past Psychological History: Anxiety Smoking Status: Never smoker Past Alcohol Use History: None Reported, Occasional Past Drug Use History: None Reported General Exam - General Exam Comments Initial Comments: General: The patient is awake and alert, in no distress, and does not appear acutely ill. Eye: There is normal conjunctiva bilaterally. No signs of icterus. Neck: The neck is supple Cardiovascular: There is a regular rate and rhythm. No murmur, rub or gallop is appreciated. Respiratory: Lungs are clear to auscultation, respirations are non-labored, stephanie ath sounds are equal. No wheezes, stridor, rales, or rhonchi. Musculoskeletal: Normal ROM, no tenderness. Neurological: A&O x 3. CN II-XII intact, There are no obvious motor or sensory deficits. Coordination appears grossly intact. Speech is normal. Skin: Skin is warm and dry and no rashes or lesions are noted. Psychiatric: Cooperative, appropriate mood & affect, normal judgment. Limitations: no limitations Course Vital Signs 06/19/21 06/19/21 06/19/21 12:25 13:01 13:36 Temperature 98.1 F Pulse Rate 76 83 Respiratory 18 22 24 Rate Blood Pressure 120/84 O2 Sat by Pulse 98 99 Oximetry Medical Decision Making - Medical Decision Making Patient reexamined at this time shows no signs of distress. She is resting comfortably. Patient's pulse ox is remained stable at 98% with ambulation. Chest x-ray reviewed does show possible early pneumonia. Patient is covert positive for symptoms started over 2 weeks ago. Does not need for monoclonal antibody infusion at this time. Patient will be discharged home to follow-up with her family doctor. Advised to return to emergency room if any symptoms increase or worsen or for any other concerns. Disposition Clinical Impression: COVID-19 Disposition: ADMITTED IP TO THIS HOSP Condition: Good Instructions (If sedation given, give patient instructions): Coronavirus Disease 2019 (COVID-19) Is patient prescribed a controlled substance at d/c from ED?: No Referrals: Tess Durand DO [Primary Care Provider] - 1-2 days Time of Disposition: 13:44
[2021-06-19 14:20] VITALS: BP 118/78; PULSE 59; RESP 18
== END 2021-06-19 14:20 | disposition other institution (70) ==
LOC: EC 11:45
DX: U07.1 COVID-19 (principal); I10 Essential (primary) hypertension; Z91.041 Radiographic dye allergy status; Z88.8 Allergy status to other drugs, medicaments and biological substances
CPT/HCPCS: 71045; 99285

== ENCOUNTER → 2022-09-26 | Outpatient (CLI) | payer OTHER ==
--- NOTE | 2022-09-26 16:54 | NM ---
EXAM: Nuclear medicine HIDA scan DATE: 09/26/2022 COMPARISON: Ultrasound 08/29/2022 HISTORY: 32-year-old female with right upper quadrant pain TECHNIQUE: After the intravenous administration of 4.4 mCi Tc 99m Mebrofenin hepatobiliary scintigrap hy is performed. Immediate images post injection. FINDINGS: There is satisfactory initial accumulation of tracer by the liver. The gallbladder is visualized wit hin 8 minutes. The small bowel activity is noted faintly at 46 minutes. At one hour 8 ounces of ora l ensure plus is given to mimic CCK and gallbladder ejection fraction is calculated at 71 %, in the n ormal range. IMPRESSION: No scintigraphic evidence for acute/chronic cholecystitis or biliary dyskinesia.
== END | disposition home or self-care (01) ==
LOC: RADNMMAIN 12:43
PROVIDERS: ATTEND Family Medicine
DX: R10.11 Right upper quadrant pain (principal); Z83.79 Family history of other diseases of the digestive system
CPT/HCPCS: 78226; A9537

== ENCOUNTER → 2023-05-06 | Day surgery (SDC) | payer OTHER ==
[2023-05-02 09:47] VITALS: BMI 45.1
[~2023-05-06] MED LIST: LACTATED RINGERS 1,000 ML IV ONE; LACTATED RINGERS 1,000 ML IV SCH; LIDOCAINE 1% (10MG/ML) FOR IV START INTRADERMA PRN; LIDOCAINE 1% INJ 10MG/ML (20 ML MDV) ONE; PROPOFOL 10 MG/ML 20 ML VIAL IV ONE
--- NOTE | 2023-05-06 08:47 | P.GSHP ---
History of Present Illness H&P Date: 05/06/23 Chief Complaint: abdominal pain, change in bowel habits 33-year-old female here for colonoscopy and EGD. Patient was seen in the office in March. Refer to that history and physical. Patient with complaints of epigastric pain that radiates to the back. Frequent nausea. Some vomiting. Frequent diarrhea. No rectal bleeding. Past Medical History Past Medical History: Fibromyalgia, GERD/Reflux Additional Past Medical History / Comment(s): back pain History of Any Multi-Drug Resistant Organisms: None Reported Past Surgical History: Ear Surgery Additional Past Surgical History / Comment(s): D&C egd Past Anesthesia/Blood Transfusion Reactions: No Reported Reaction Additional Past Anesthesia/Blood Transfusion Reaction / Comment(s): no blood transfusion Smoking Status: Current every day smoker, Vaper Medications and Allergies Home Medications Medication Instructions Recorded Confirmed Type No Known Home Medications 06/19/21 05/06/23 History Allergies Allergy/AdvReac Type Severity Reaction Status Date / Time pregabalin [From Lyrica] Allergy Swelling Verified 05/06/23 08:31 Iodinated Contrast Media AdvReac Nausea & Verified 05/06/23 08:31 [Iodinated Contrast- Oral Vomiting and IV Dye] Surgical - Exam Vital Signs Temp Pulse Resp BP Pulse Ox 97.6 F 83 16 125/83 97 05/06/23 08:35 05/06/23 08:35 05/06/23 08:35 05/06/23 08:35 05/06/23 08:35 Physical exam: General: Well-developed, well-nourished HEENT: Normocephalic, sclerae nonicteric Abdomen: Nontender, nondistended Extremities: No edema Neuro: Alert and oriented Assessment and Plan (1) Abdominal pain Narrative/Plan: Will proceed with upper and lower endoscopy Current Visit: Yes Status: Acute Code(s): R10.9 - UNSPECIFIED ABDOMINAL PAIN SNOMED Code(s): 96793120
[2023-05-06 08:49] VITALS: TEMP 97.6
--- NOTE | 2023-05-06 09:13 | P.PCN ---
Date of Procedure: 05/06/23 Procedure(s) Performed: PREOPERATIVE DIAGNOSIS: Abdominal pain, change in bowel habits POSTOPERATIVE DIAGNOSIS: Gastritis, esophageal polyp, normal colon PROCEDURE: 1. EGD with biopsy 2. Colonoscopy with biopsy ANESTHESIA: MAC SURGEON: Dariel Robertson M.D. SPECIMENS: Antrum, duodenum, esophageal polyp, random colon ENDOSCOPIC PROCEDURE: The patient was on the endoscopy table in the left decubitus position. The Olympus gastroscope was inserted into the oropharynx and passed under direct visualization to the region of the third portion of the duodenum. From that point the scope was slowly withdrawn inspecting all surfaces carefully. There were no neoplastic inflammatory or polypoid lesions throughout the duodenum. A biopsy of the duodenum took place. The pylorus was widely patent. The stomach was carefully inspected. There was mild gastritis present. A biopsy of the antrum took place to rule out H. pylori. Retroflexion revealed a normal hiatus. The esophagus was then carefully examined. There was noted to be a small superficial sessile polypoid lesion in the mid esophagus. This was mostly removed using the cold biopsy forceps. The remainder the esophagus appeared normal. The patient was kept on the endoscopy table in the left decubitus position. The Olympus colonoscope was inserted into the anus and passed under direct visualization to the base of the cecum. The appendiceal orifice was visualized. From that point the scope was slowly withdrawn inspecting all surfaces carefully. There were no neoplastic inflammatory or polypoid lesions throughout the cecum, ascending, transverse, descending, sigmoid and rectum. There was no visible diverticulosis noted. A few random biopsies of the colon took place to evaluate for microscopic colitis. Digital rectal examination was normal. The patient was taken to the recovery room in stable condition per anesthesia rebecca manzo. RECOMMENDATIONS: Await biopsy results. Resume diet.
[2023-05-06 09:35] VITALS: BP 107/74; PULSE 67; RESP 12
== END ==
LOC: ORWHC2ENDO 07:54
PROVIDERS: ATTEND Surgery
DX: K29.50 Unspecified chronic gastritis without bleeding (principal); D72.820 Lymphocytosis (symptomatic); K90.0 Celiac disease; M79.7 Fibromyalgia; K21.9 Gastro-esophageal reflux disease without esophagitis; F41.9 Anxiety disorder, unspecified; F17.290 Nicotine dependence, other tobacco product, uncomplicated; Z88.6 Allergy status to analgesic agent; Z88.8 Allergy status to other drugs, medicaments and biological substances; Z79.899 Other long term (current) drug therapy; Z91.041 Radiographic dye allergy status
CPT/HCPCS: 81025; 88305; 45380; 43239; J2001; J2704